=== PATIENT | female | born 1980 | race Caucasian/White ===

== ENCOUNTER 2016-07-31 21:41 | Inpatient (IN) | payer OTHER ==
--- NOTE | ~2016-07-31 | DS ---
Unit #: [id number] #: [id number] Patient: MIKE HERNANDEZ [id number] [place] [address] [id number] MR#: [id number] NAME: MIKE HERNANDEZ ROOM: [facility] Age: 35 Sex: F Admission Date: 07/31/2016 : 1980 Discharge Date: 08/02/2016 Attending Physician: Roddy Carlson M.D. Primary Care Physician: Primary Care Physician No DISCHARGE SUMMARY REASON FOR ADMISSION Detox from opiates and benzodiazepines. DIAGNOSTIC STUDIES PERTINENT LABORATORY DATA: Routine blood work of a CMP that was grossly within normal parameters. TSH normal at 0.55. Free T4 normal at 0.75. Beta HCG that was negative. CBC that was within normal parameters. RPR that was nonreactive. Urine tox that was positive for benzos, amphetamines, and opiates. Urinalysis that showed trace leukocyte esterase, 1+ urobilinogen, 2+ blood, 10 to 25 URBCs, and 1 bacteria. No other labs performed. HOSPITAL COURSE The patient was admitted for safety and stabilization for issues with opiate and benzo detox. She was placed on appropriate detox protocols. The patient complained of symptoms initially ranging from hot and cold chills as well as aches and pains, upset stomach, diarrhea, poor energy, poor sleep, etc. The patient was monitored carefully during the program and was encouraged to go to groups and activities. Unfortunately, on the seventh after the patient earlier been seen that morning, she became upset about the amount of ice cream she was being given. When they were unable to get her more, she decided she wanted to leave. There was no active evidence of SI or HI, so the patient was allowed to leave AMA. It was felt that she would have benefited by maintaining in the hospital for detox purposes, but as there was no acute evidence of dangerousness she was allowed to go Against Medical Advice. CONDITION ON DISCHARGE AMA. DISCHARGE DIAGNOSES 1. Opiate dependence with withdrawal. 2. Sedative hypnotic dependency with withdrawal. DISCHARGE MEDICATIONS None. FOLLOWUP CARE None. PROGNOSIS Poor given the patient's limited insight into her addiction. DIET Unit #: [id number] #: [id number] Patient: MIKE HERNANDEZ Regular. ACTIVITY As tolerated with sobriety encouraged. Dictated by... Kriss Price TD: 08/03/2016 09:51 JOB #: [id number] DISCHARGE SUMMARY Page 1 of 1 X Roddy Carlson MD X DISCHARGE SUMMARY
--- NOTE | ~2016-07-31 | PA ---
Unit #: [id number] #: [id number] Patient: MIKE HERNANDEZ [id number] [place] [address] [id number] I MR#: [id number] NAME: MIKE HERNANDEZ ROOM: P182 Age: 35 Sex: F Admission Date: 07/31/2016 : 1980 Date of Assessment: 08/01/2016 Attending Physician: Roddy Carlson M.D. Admitting Physician: Roddy Carlson M.D. PSYCHIATRIC ASSESSMENT LOCATION [facility], room 182, bed 1. DATE OF SERVICE 08/01/2016. INFORMANT The patient which is not reliable, but chart is. CHIEF COMPLAINT Incoherent mumbling per chart, polysubstance abuse. HISTORY OF PRESENT ILLNESS This is a 35-year-old white female, admitted to the hospital for issues with polysubstance dependency, primarily including opioids and benzodiazepines. The patient apparently had relapsed over a week ago and has been abusing high amounts of both heroin and Klonopin as well as methamphetamines and marijuana. Unfortunately today, the patient is very sedated and poorly cooperative with the interview process. She was able to acknowledge herself and where she was at but she seemed more interested in sleeping. She did admit to taking drugs and was here for detox but beyond that was little help with the interview process and most information had to be obtained from chart. She was able to deny having any suicidal or homicidal ideation at this time. Beyond that, again no other responses. Apparently, per chart the patient has been abusing up to 2 g of heroin a day over a week as well as 120 Klonopin pills of unknown dosage since the . Stressors per the chart include her mother being in the hospital in a critical state as well as her ex- being arrested. The patient apparently has been staying with the geological survey field assistant since May because of abuse issues, but is essentially homeless according to the chart. It is unclear about previous detox efforts or other treatments at this time. PAST PSYCHIATRIC HISTORY Unable to obtain at this point. FAMILY HISTORY Unable to obtain beyond what is noted above. SOCIAL HISTORY Again as noted above. Unclear about current status of employment. The patient apparently has some college education per the chart. Unit #: [id number] #: [id number] Patient: MIKE HERNANDEZ MEDICAL ISSUES Nothing obtained at this time. MEDICATION HISTORY No reported home medications per the chart. ALLERGIES No known drug allergies. SUBSTANCE ABUSE HISTORY As noted above. Unable to obtain further information in terms of history, treatment, or significant withdrawal problems, but apparently had been sober for over up to a year when this relapse happened according to the chart. MENTAL STATUS EXAMINATION General appearance; she is a limitedly groomed white female, appears older than stated age, disheveled, poorly cooperative, responsive to interview process. Speech was limited in clarity, but appropriate. Mood was sedated with a congruent affect. Thought process and content were generally organized, but limited evaluation overall. No active SI or HI noted. No active evidence of psychosis. There was some noted in chart that the patient has had issues with hallucinations when intoxicated, but it is unclear how accurate that is. Memory, unable to be fully evaluated. She was alert and oriented to time, self, place, and situation. Cognitive functioning seems to be somewhat limited at this time because of sedation, generally appropriate. Associations were limited . Insight and judgment are poor. ADMITTING DIAGNOSES 1. Benzodiazepine dependency, possible withdrawal. 2. Opioid dependency with possible withdrawal. PSYCHIATRIC PLAN Plan is to continue the patient's admission for safety and stabilization for substance abuse including sedative hypnotics and opioids. The patient is on current detox protocol accordingly and being monitored closely for her progress. Hopefully, given her brief relapse, it should be short lived, but it is unclear at this time given the patient's limited history in terms of previous withdrawal symptoms. Treatment goals will be resolution of these symptoms in a controlled safe environment with likely discharge planning either inquiring into possible residential treatment versus community resources. ESTIMATED LENGTH OF STAY Approximately 4 to 5 days depending on the patient's progress and response to treatment. Dictated by... Kriss Price/theron TD: 08/01/2016 23:03 JOB #: [id number] Unit #: [id number] #: [id number] Patient: MIKE HERNANDEZ PSYCHIATRIC ASSESSMENT Page 1 of 1 X Roddy Carlson MD X PSYCHIATRIC ASSESSMENT
--- NOTE | ~2016-07-31 | HP ---
Unit #: [id number] #: [id number] Patient: NICOLE HERNANDEZ [id number] [place] [address] [id number] MR#: [id number] NAME: NICOLE HERNANDEZ ROOM: P182 Age: 35 Sex: F Admission Date: 07/31/2016 : 1980 Attending Physician: Roddy Carlson M.D. Admitting Physician: Roddy Carlson M.D. Primary Care Physician: Primary Care Physician No HISTORY AND PHYSICAL HISTORY OF PRESENT ILLNESS Nicole is a 35 year old admitted to [facility] because of her polysubstance abuse which includes heroin, benzodiazepines and methamphetamine. PAST MEDICAL HISTORY 1. Long history of illicit substance abuse to include snorting heroin, methamphetamine and abusing benzodiazepines. 2. History of gestational diabetes. PAST SURGICAL HISTORY 1. T and A. 2. Pelvic lap, right oophorectomy. ALLERGIES Codeine, Celebrex. SOCIAL HISTORY Smokes 1 pack per day. Denies alcohol. Admits to a long history of poly-illicit substance abuse. FAMILY HISTORY Medically noncontributory. REVIEW OF SYSTEMS CONSTITUTIONAL: No fever or chills. HEENT: Denies any sore throat, ear pain or runny nose. CARDIOVASCULAR: Denies chest pain, irregular heart rhythm or palpitations. CHEST: Denies shortness of breath or cough. No hemoptysis. GASTROINTESTINAL: Denies nausea, vomiting, diarrhea or chronic constipation. ENDOCRINE: Denies history of increased thirst or urination. No recent significant weight loss or gain. GENITOURINARY: Denies dysuria, frequency, or hematuria. SKIN: Denies any rashes. HEMATOLOGIC: Denies history of increased bleeding or bruising. MUSCULOSKELETAL: Denies any hot, swollen joints. No generalized muscle pain. NEUROLOGIC: Denies problems with vision or speech. No frequent, severe headaches. No numbness, tingling or weakness in any extremities. Denies loss of bladder or bowel control. CURRENT MEDICATIONS Detox protocol. Unit #: [id number] #: [id number] Patient: NICOLE HERNANDEZ PHYSICAL EXAMINATION GENERAL: Alert, well-nourished, in no apparent distress. VITAL SIGNS: Blood pressure 100/60, heart rate 84, respirations 16, temperature 98.6. WEIGHT: 130. HEIGHT: 5 feet 2 inches. SKIN: Warm and dry without rash or lesion. HEENT: Normocephalic. TMs not viewed. Oral and nasal passages clear. Conjunctivae clear. PERRLA. EOMs intact. NECK: Supple without lymphadenopathy or thyromegaly. HEART: Regular rate and rhythm without murmur. LUNGS: Clear. ABDOMEN: Soft, nontender. : Not done. EXTREMITIES: No evidence of cyanosis, clubbing or edema. Moves all without focal deficit. NEUROLOGICAL: Grossly within normal limits. Cranial Nerves: II: Visual rebolledo are intact. III, IV AND : Extraocular movements are intact. Pupils are equal, round and reactive to light. V: Facial sensation is grossly normal. VII: Facial movements and expression are normal. VIII: Auditory acuity grossly intact. IX, X: Uvula is midline. Phonation is normal. XI: Patient shrugs shoulders and turns head normally. XII: Tongue protrudes in the midline. Sensory and Motor Function: Sensory and motor sensation is grossly normal. Motor: moves all extremities well. Coordination: Gait is normal. Deep Tendon Reflexes: Intact. IMPRESSION Psychiatric admission. RECOMMENDATIONS PSYCHIATRIC: Per psychiatrist. MEDICAL: See no contraindication to participate in facility's activities. MEDICAL PROGNOSIS Good. MEDICAL CONDITION Stable. Dictated by... Pilar Hartmann P.A.-C. for Kriss Zelaya/gayle TD: 08/01/2016 21:18 JOB #: [id number] Unit #: [id number] #: [id number] Patient: NICOLE HERNANDEZ HISTORY AND PHYSICAL Page 1 of 1 X Pilar Hartmann HISTORY AND PHYSICAL
--- NOTE | ~2016-07-31 | PN ---
Unit #: [id number] #: [id number] Patient: MIKE HERNANDEZ [id number] [facility] [address] [place] [address] [id number] I MR#: [id number] NAME: MIKE HERNANDEZ ROOM: P182 Age: 35 Sex: F Admission Date: 07/31/2016 : 1980 Attending Physician: Roddy Carlson M.D. Admitting Physician: Roddy Carlson M.D. Primary Care Physician: Primary Care Physician Amina ANAYA PROGRESS NOTES DATE 08/02/2016 SUBJECTIVE UPDATE This is a 35-year-old female admitted to the hospital with issues of substance detox including opiates, benzodiazepines and other substances. Patient continuing to report aches, pains, chills, sweating, poor sleep, poor p.o. intake, poor GI tolerance with some diarrhea. Patient also having restless leg tremors and significant itching. Patient reports did not sleep well all night even with aid of trazodone. Patient still isolative to room. No active SI today. MENTAL STATUS EXAMINATION General appearance is a limitedly groomed white female appears older than stated age fairly more cooperative and responsive today than she was yesterday. Speech was clear and coherent with normal prosody. Mood was anxious, dysphoric with congruent affect. Thought process and content were grossly organized and linear. No overt evidence of psychosis. No active SI or HI. Patient's memory was grossly intact. Associations were normal. She was alert and oriented times four. Cognitive functioning was at baseline. Insight and judgement was limited. ASSESSMENT/RECOMMENDATIONS Will continue patient's admission for ongoing detox issues with symptoms as noted above. Patient's blood pressure continues to run somewhat low with a current blood pressure of 101/42. It could be complication from the medications that are being given to start the detox process. Will be monitored accordingly. Hopefully, symptoms will resolve in a safe controlled fashion as soon as possible. Patient encouraged to be ambulatory and social as much as possible, going to groups and activities for cathartic care and will switch from trazodone to Seroquel tonight to aid with sleep and any ongoing mood issues substance related. Dictated by... Roddy Carlson M.D. MAYANK/gayle TD: 08/02/2016 20:36 Unit #: [id number] #: [id number] Patient: MIKE HERNANDEZ JOB #: [id number] [facility] PROGRESS NOTES Page 1 of 1 X Roddy Carlson MD PROGRESS NOTE
[2016-08-01 10:09] LABS: URINE APPEARANCE CLOUDY; URINE BILIRUBIN NEG (NEG); URINE BLOOD 2+ (NEG); URINE COLOR YELLOW; URINE GLUCOSE NEG (NEG); URINE KETONE NEG (NEG); URINE LEUKOCYTE ESTERASE TRACE (NEG); URINE NITRATE NEG (NEG); URINE PH 6.5 (5-8); URINE PROTEIN NEG (NEG); URINE SPECIFIC GRAVITY 1.016 (1.003-1.035)
[2016-08-01 10:13] LABS: URINE SQUAMOUS EPITHELIAL CELL MOD /[HPF]
[2016-08-01 10:24] LABS: THYROID STIMULATING HORMONE 0.55 uIU/ml (0.34-5.60)
[2016-08-01 10:26] LABS: ALBUMIN SERUM 3.9 g/dL (3.5-5.0); BILIRUBIN,TOTAL 0.6 mg/dL (0.2-2.0); CALCIUM SERUM 9.2 mg/dL (8.4-10.2); CREATININE SERUM 0.6 mg/dL (0.6-1.4); GLOM FILT RATE Estimated 119.8 mL/min (>60); POTASSIUM 3.7 mmol/L (3.5-5.1); PROTEIN TOTAL SERUM 6.4 g/dL (6.0-8.3)
[2016-08-01 10:29] LABS: BASOPHIL# 0.1 X10e3 (0-0.3); BASOPHIL% 1.1 % (0-2.5); EOSINOPHIL# 0.2 X10e3 (0-0.7); HEMATOCRIT 39.3 % (35.0-45.0); HEMOGLOBIN 13.1 gm/dL (12.0-16.0); LYMPHOCYTE# 2.6 X10e3 (1.0-3.5); LYMPHOCYTE% 52.4 % (17.0-45.0); MEAN CELL VOLUME 85.5 FL (83-96); MEAN CORPUSCULAR HEMOGLOBIN 28.6 PG (28-34); MEAN CORPUSCULAR HGB CONC 33.4 g/dL (30-36); MEAN PLATELET VOLUME 10.4 FL (6.5-11.5); MONOCYTE# 0.4 X10e3 (0-1.0); MONOCYTE% 8.8 % (3.0-12.0); NEUTROPHIL# 1.7 X10e3 (1.5-7.1); NEUTROPHIL% 33.7 % (40-75); PLATELET COUNT 194 X10e3 (140-420); RED CELL DISTRIBUTION WIDTH 14.2 % (11.0-15.5)
[2016-08-01 10:30] LABS: DIFF IND YES; FREE THYROXIN (T4) 0.75 ng/dL (0.58-1.64)
[2016-08-01 10:37] LABS: URINE MUCUS PRESENT
[2016-08-01 10:38] LABS: URINE BACTERIA AUWI 1+ (NEGATIVE)
[2016-08-01 10:46] LABS: AMPHETAMINE POS (NEG); BARBITURATES NEG (NEG); BENZODIAZEPINES POS (NEG); COCAINE NEG (NEG); MARIJUANA NEG (NEG); OPIATES POS (NEG); TRICYCLIC ANTIDEPRESSANTS NEG (NEG); U METHADONE NEG (NEG)
[2016-08-01 11:39] LABS: PLATELET ESTIMATE NORMAL (NORMAL)
== END 2016-08-02 20:15 | disposition left against medical advice (07) | DRG 894 ==
LOC: P1E 21:41
PROVIDERS: Psychiatry & Neurology Psychiatry
PROC: HZ2ZZZZ Detoxification Services for Substance Abuse Treatment (ICD-10-PCS; principal; 2016-07-31)
DX: F13.239 Sedative, hypnotic or anxiolytic dependence with withdrawal, unspecified (principal); F17.210 Nicotine dependence, cigarettes, uncomplicated; F11.23 Opioid dependence with withdrawal; Z88.6 Allergy status to analgesic agent; Z88.5 Allergy status to narcotic agent
CPT/HCPCS: 80053; 80307; 81003; 84439; 84443; 84703; 85025; 86592

== ENCOUNTER 2016-08-26 15:15 | Emergency (ER) | payer OTHER ==
--- NOTE | ~2016-08-26 | CR63 ---
[facility] A Service [facility] RADIOLOGY TEXT RESULTS PATIENT: MIKE CALLES LOCATION: [facility] : [birth year] UNIT #: [id number] AGE: [address]: Deana Aaron SEX: F ORDER DR: [id number] [facility]. [place], [place] [address] [id number] MR#: [id number] Acc #: [id number] NAME: MIKE CALLES : 1980 SEX: F STUDY DATE/TIME: 08/26/2016 15:24 UNIT: [facility] ROOM: STUDY DESCRIPTION: CR Chest 2 View Attending Physician: Deana Aaron Pa-C Ordering Physician: Deana Aaron Pa-C Primary Care Physician: No Primary Care Physician MEDICAL IMAGING REPORT This report is preliminary unless electronic signature is present EXAM Chest radiograph PA and lateral 2 views DATE OF EXAMINATION 08/26/2016 COMPARISON None. HISTORY Cough for 1 week, hemoptysis, short of air. FINDINGS PA and lateral examination of the chest upright shows a good expansion of the parenchyma with a normal distribution of the pulmonary vascularity. There is no indication of congestion, effusion, infiltrate, tumor, or nodular density. The pleural reflections and diaphragmatic contours are normal. The cardiac silhouette and mediastinal anatomy is within normal limits. IMPRESSION Normal chest. Dictated by... Harsh Garcia M.D. THIS IS AN ELECTRONICALLY VERIFIED REPORT Harsh Garcia M.D. at 09/02/2016 10:45 AM Radha TD: 08/26/2016 17:32 JOB #: [id number] [facility] A Service [facility] RADIOLOGY TEXT RESULTS PATIENT: MIKE CALLES LOCATION: [facility] : 84 UNIT #: [id number] AGE: [address]: Deana Aaron SEX: F ORDER DR: MEDICAL IMAGING REPORT Page 1 of 1 COPY
== END 2016-08-26 16:08 | disposition home or self-care (01) ==
LOC: CED 15:15
DX: J06.9 Acute upper respiratory infection, unspecified (principal); Z20.818 Contact with and (suspected) exposure to other bacterial communicable diseases; F17.200 Nicotine dependence, unspecified, uncomplicated; Z90.49 Acquired absence of other specified parts of digestive tract
CPT/HCPCS: 71020; 99283